=== PATIENT | female | born 1965 | race Caucasian/White ===

== ENCOUNTER 2017-09-14 10:41 | Day surgery (SDC) | payer OTHER ==
[2017-09-14] MEDS ORDERED: LIDOCAINE 1% 20 ML MDV ID STA (11:25)
[2017-09-14] MEDS ORDERED: LIDOCAINE HCL 2% LUER-JET ONE (12:00)
[2017-09-14] MEDS ORDERED: DIPRIVAN 20 ML VIAL IVP ONE (12:00)
[2017-09-14] MEDS ORDERED: VERSED ONE (12:00)
[2017-09-14 15:04] VITALS: BP 108/76; TEMP 97.5
--- NOTE | 2017-09-15 09:29 | OP ---
PROCEDURE: EGD (ESOPHAGOGASTRODUODENOSCOPY). ENDOSCOPIST: Danial JIMENEZ M.D. INDICATION: REFLUX INSTRUMENT: [facility]-190. MEDICATION: PER ANESTHESIA. PROCEDURE: The patient was positioned for endoscopy. The oropharynx was sprayed with Cetacaine spray and the endoscope was advanced through the bite block into the esophagus and from there advanced to the duodenum. The duodenum is normal. The pylorus is patent. The antrum is normal. Hiatal hernia is noted on retroflex exam. She does have small fundic polyps noted in the body and fundus. The Z-line was regular at 30 cm. The esophagus was otherwise normal. PLAN: 1. 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 2. Repeat her exam as needed. CC: DR. JOAO AYALA
--- NOTE | 2017-09-15 09:55 | OP ---
PROCEDURE: COLONOSCOPY TO THE CECUM WITH SNARE POLYPECTOMY ENDOSCOPIST: Danial JIMENEZ M.D. INDICATION: SCREENING. NO PREVIOUS EXAMINATION. INSTRUMENT: [facility]-190. MEDICATION: PER ANESTHESIA. PROCEDURE: The patient was positioned for colonoscopy. The digital rectal exam was negative. The colonoscope was inserted through the anus and advanced to the cecum. The cecum was identified using the ileocecal valve and the appendiceal orifice as landmarks. The scope was slowly withdrawn through an adequately prepped colon. Careful inspection is made of each colonic segment as the scope is withdrawn in a circumferential fashion. Care is taken to inspect the proximal side of the ileocecal valve, haustral folds, flexures and rectal valves. In the ascending colon a small polyp is removed using snare cautery. No other abnormalities were noted. Retroflex exam was negative. Withdrawal time 7 minutes and 10 seconds. PLAN: Repeat her exam in 5 years. CC: DR. IRINA AYALA
== END 2017-09-14 13:15 | disposition home or self-care (01) ==
LOC: SURG 10:41
PROVIDERS: ATTEND Internal Medicine Gastroenterology
DX: Z12.11 Encounter for screening for malignant neoplasm of colon (principal); D12.2 Benign neoplasm of ascending colon; K21.9 Gastro-esophageal reflux disease without esophagitis; K44.9 Diaphragmatic hernia without obstruction or gangrene; K31.7 Polyp of stomach and duodenum